=== PATIENT | female | born 1940 | race Hispanic/Latino ===

== ENCOUNTER 2017-04-27 03:39 | Observation (INO) | payer MEDICARE, MEDICAID ==
[2017-04-27 03:52] VITALS: BMI 24.3
--- NOTE | 2017-04-27 04:03 | ED PDOC ---
Arrival/HPI - General Time Seen by Provider: 04/27/17 03:43 Historian: Patient - History of Present Illness Narrative History of Present Illness (Text): 04/27/17 04:02 Lexi Hill is a 76 year old female, whose past medical history includes hypertension, chronic atrial fibrillation on Eliquis, NIDDM, chronic vertigo, hyperlipidemia, gastritis, and dementia, who presents to the Emergency department complaining of dysuria and tacho hematuria tonight. Patient denies any fever, chills, chest pain, shortness of breath, nausea, vomiting, neck pain , headache, dizziness, or any other complaints. Time/Duration: Other (tonight) Symptom Onset: Gradual Symptom Course: Unchanged Activities at Onset: Light Context: Home Past Medical History - Provider Review Nursing Documentation Reviewed: Yes - Infectious Disease Hx of Infectious Diseases: None - Tetanus Immunization Tetanus Immunization: Unknown - Cardiac Hx Cardiac Disorders: Yes Hx Atrial Fibrillation: Yes Hx Cardiac Arrhythmia: Yes Hx Hypertension: Yes - Pulmonary Hx Respiratory Disorders: No - Neurological Hx Neurological Disorder: No - HEENT Hx HEENT Disorder: No - Renal Hx Renal Disorder: No - Endocrine/Metabolic Hx Endocrine Disorders: Yes Hx Diabetes Mellitus Type 2: Yes (niddm) - Hematological/Oncological Hx Blood Disorders: Yes Hx Cancer: Yes (right breast ca w/lumpectomy rad tx in 2013) - Integumentary Hx Dermatological Disorder: No - Musculoskeletal/Rheumatological Hx Musculoskeletal Disorders: No - Gastrointestinal Hx Gastrointestinal Disorders: Yes - Genitourinary/Gynecological Hx Genitourinary Disorders: No - Psychiatric Hx Psychophysiologic Disorder: Yes Hx Anxiety: Yes Hx Depression: Yes Hx Substance Use: No - Surgical History Hx Appendectomy: Yes Hx Hysterectomy: Yes - Anesthesia Hx Anesthesia: Yes Hx Anesthesia Reactions: No Hx Malignant Hyperthermia: No - Suicidal Assessment Feels Threatened In Home Enviroment: No Family/Social History - Physician Review Nursing Documentation Reviewed: Yes Family/Social History: Unknown Family HX Smoking Status: Never Smoked Hx Alcohol Use: No Hx Substance Use: No Hx Substance Use Treatment: No Allergies/Home Meds Allergies/Adverse Reactions: Allergies No Known Allergies Allergy (Verified 04/27/17 03:52) Home Medications: Home Meds Medication Instructions Recorded Confirmed Lorazepam [Ativan] 0.5 mg PO Q6H PRN 11/11/11 04/27/17 Metformin Hydrochloride [Metformin] 500 mg PO BID 11/11/11 04/27/17 Sertraline [Zoloft] 50 mg PO DAILY 11/11/11 04/27/17 Simvastatin [Zocor] 40 mg PO DAILY 11/11/11 04/27/17 Warfarin [Coumadin] 5 mg PO DAILY 12/16/12 04/27/17 Amiodarone Hydrochloride 1 tab PO DAILY 06/19/13 04/27/17 [Amiodarone HCl] Calcium Carbonate [Calcium] 1 tab PO DAILY 06/19/13 04/27/17 Hydrochlorothiazide/Losartan 1 tab PO DAILY 06/19/13 04/27/17 [Losartan Potassium and Hydrochlorothiazide 12] Wbysf-5-Holo Ethyl Esters [Lovaza] 1 tab PO DAILY 06/19/13 04/27/17 Pantoprazole [Protonix] 1 tab PO DAILY 06/19/13 04/27/17 Review of Systems - Physician Review All systems were reviewed & negative as marked: Yes - Review of Systems Constitutional: Normal. absent: Fevers Eyes: Normal ENT: Normal Respiratory: Normal. absent: SOB, Cough Cardiovascular: Normal. absent: Chest Pain Gastrointestinal: Normal. absent: Abdominal Pain, Diarrhea, Nausea, Vomiting Genitourinary Female: Dysuria, Hematuria. absent: Frequency, Urine Output Changes Musculoskeletal: Normal. absent: Back Pain, Neck Pain Skin: Normal. absent: Rash Neurological: Normal. absent: Headache, Dizziness Endocrine: Normal Hemo/Lymphatic: Normal Psychiatric: Normal Physical Exam Vital Signs Reviewed: Yes Vital Signs Temp Pulse Resp BP Pulse Ox 04/27/17 05:39 68 18 136/57 L 96 04/27/17 03:39 99.2 F 74 16 154/95 H 100 Temperature: Afebrile Blood Pressure: Normal Pulse: Regular Respiratory Rate: Normal Appearance: Positive for: Well-Appearing, Non-Toxic, Comfortable Pain Distress: None Mental Status: Positive for: Alert and Oriented X 3 - Systems Exam Head: Present: Atraumatic, Normocephalic Pupils: Present: PERRL Extroacular Muscles: Present: EOMI Conjunctiva: Present: Normal Mouth: Present: Moist Mucous Membranes Neck: Present: Normal Range of Motion Respiratory/Chest: Present: Clear to Auscultation, Good Air Exchange. No: Respiratory Distress, Accessory Muscle Use Cardiovascular: Present: Regular Rate and Rhythm, Normal S1, S2. No: Murmurs Abdomen: Present: Normal Bowel Sounds. No: Tenderness, Distention, Peritoneal Signs Genitourinary/Pelvic Exam: Present: Normal External Genitalia. No: Vaginal Discharge, Vaginal Bleeding Back: Present: Normal Inspection Upper Extremity: Present: Normal Inspection. No: Cyanosis, Edema Lower Extremity: Present: Normal Inspection. No: Edema Neurological: Present: GCS=15, CN II-XII Intact, Speech Normal Skin: Present: Warm, Dry, Normal Color. No: Rashes Psychiatric: Present: Alert, Oriented x 3, Normal Insight, Normal Concentration Medical Decision Making ED Course and Treatment: 04/27/17 04:02 Impression: 76 year old female complaining of dysuria and tacho hematuria tonight. Plan: -- Labs -- Urinalysis -- IV fluids -- Morphine -- Reassess and disposition Prior Visits: Notes and results from previous visits were reviewed. On 08/03/2015, pt was seen in the Emergency department for high blood pressure. Pt was d/c home. Progress Notes: 04/27/17 05:[address] Matos, who is aware and agrees with plan. Accepts pt in to her service. Pt will go to [facility] observation for UTI. - Lab Interpretations Lab Results: 04/27/17 04:10 04/27/17 04:10 Lab Results 04/27/17 04:10: Urine Color Dark red, Urine Appearance Bloody, Urine pH 6.5, Ur Specific [place] 1.020, Urine Protein >=300 H, Urine Glucose (UA) Negative, Urine Ketones 15 H, Urine Blood Large H, Urine Nitrate Positive H, Urine Bilirubin Large H, Urine Urobilinogen 2.0 H, Ur Leukocyte Esterase Large H, Urine RBC Tntc, Urine WBC Tntc, Ur Epithelial Cells 0 - 2, Urine Bacteria Small 04/27/17 04:10: WBC 11.3 H D, RBC 5.16, Hgb 8.7 L, Hct 29.2 L, MCV 56.6 L, MCH 16.9 L, MCHC 29.8 L, RDW 23.1 H, Plt Count 263 04/27/17 04:10: Sodium 138, Potassium 4.0, Chloride 103, Carbon Dioxide 25, Anion Gap 15, BUN 15, Creatinine 0.7, Est GFR ( Amer) > 60, Est GFR (Non- Af Amer) > 60, Random Glucose 153 H, Calcium 9.1, Total Bilirubin 0.5, AST 67 H , ALT 84 H, Alkaline Phosphatase 64, Total Protein 8.1, Albumin 4.4, Globulin 3.7, Albumin/Globulin Ratio 1.2 04/27/17 04:10: PT 16.6 H, INR 1.51 H, APTT 31.1 I have reviewed the lab results: Yes - Medication Orders Current Medication Orders: Atorvastatin Calcium (Lipitor) 20 mg PO DIN [facility] Last Admin: 04/27/17 17:53 Dose: 20 mg Hydrochlorothiazide (Microzide) 12.5 mg PO DAILY [facility] Last Admin: 04/27/17 10:26 Dose: 12.5 mg Ceftriaxone Sodium (Rocephin 1 Gram Ivpb (D5w)) 1 gm in 100 mls @ 100 mls/hr IVPB DAILY [facility] PRN Reason: Protocol Insulin Human Lispro (Humalog Med) 0 units SC ACHS [facility] PRN Reason: Protocol Last Admin: 04/27/17 22:04 Dose: MAR Blood Glucose Document 04/27/17 22:04 MV (Rec: 04/27/17 22:04 MV [email or web address]) Blood Glucose Finger Stick Blood Glucose (70-120) 128 Lorazepam (Ativan) 0.5 mg PO Q6H PRN PRN Reason: Anxiety Losartan Potassium (Cozaar) 50 mg PO DAILY [facility] Last Admin: 04/27/17 10:27 Dose: 50 mg MAR Pulse and Blood Pressure Document 04/27/17 10:27 SOUV (Rec: 04/27/17 10:27 SOU [id number]) Pulse Pulse Rate (60-90) 66 Blood Pressure Blood Pressure (100/60-150/90) 145/60 Meclizine HCl (Antivert) 25 mg PO TID [facility] Last Admin: 04/27/17 17:53 Dose: 25 mg Metformin HCl (Glucophage) 500 mg PO BID [facility] Last Admin: 04/27/17 17:53 Dose: 500 mg Pantoprazole Sodium (Protonix Ec Tab) 40 mg PO ACB [facility] Sertraline HCl (Zoloft) 50 mg PO DAILY [facility] Last Admin: 04/27/17 10:25 Dose: 50 mg Discontinued Medications Sodium Chloride (Sodium Chloride 0.9%) 1,000 mls @ 999 mls/hr IV .Q1H1M STA Stop: 04/27/17 05:16 Last Admin: 04/27/17 04:26 Dose: 999 mls/hr eMAR Start Stop Document 04/27/17 04:26 JOL (Rec: 04/27/17 04:26 JOL [id number]) Intravenous Solution Start Date 04/27/17 Start Time 04:26 End Date 04/27/17 End time 05:27 Total Infusion Time 61 Ceftriaxone Sodium (Rocephin 1 Gram Ivpb (D5w)) 1 gm in 100 mls @ 200 mls/hr IVPB ONCE STA PRN Reason: Protocol Stop: 04/27/17 06:24 Last Admin: 04/27/17 06:26 Dose: 200 mls/hr eMAR Start Stop Document 04/27/17 06:26 JOL (Rec: 04/27/17 06:26 JOL [id number]) Intravenous Solution Start Date 04/27/17 Start Time 06:26 End Date 04/27/17 End time 06:56 Total Infusion Time 30 Sodium Chloride (Sodium Chloride 0.9%) 1,000 mls @ 100 mls/hr IV .Q10H STA Stop: 04/27/17 16:05 Last Admin: 04/27/17 06:42 Dose: 100 mls/hr eMAR Start Stop Document 04/27/17 06:42 JOL (Rec: 04/27/17 06:42 JOL [id number]) Intravenous Solution Start Date 04/27/17 Start Time 06:42 Morphine Sulfate (Morphine) 2 mg IVP STAT STA Stop: 04/27/17 04:12 Last Admin: 04/27/17 04:26 Dose: 2 mg MAR Pain Assessment Document 04/27/17 04:26 JOL (Rec: 04/27/17 04:26 JOL [id number]) Pain Reassessment Is this a pain reassessment? No Sleep Is patient sleeping during reassessment? No Presence of Pain Presence of Pain Yes Pain Scale Used Pain Scale Used Numeric Location Upper or Lower Lower Pain Location Body Site Abdomen Description Intensity of Pain at present 7 Pain Behavior Moaning Grasping Site Rubbing Site Restlessness Facial Grimacing Aggravating Factors ADL's Changing Position IVP Administration Document 04/27/17 04:26 JOL (Rec: 04/27/17 04:26 MIGUEL [id number]) Charges for Administration # of IVP Administrations 1 Non-Formulary Medication (Amiodarone Hydrochloride [Amiodarone Hcl]) 1 tab PO DAILY [facility] Non-Formulary Medication (Hydrochlorothiazide/Losartan [Losartan 50mg/Hctz 12.5mg]) 1 tab PO DAILY [facility] Non-Formulary Medication (Lorazepam [Ativan]) 0.5 mg PO Q6H PRN PRN Reason: Anxiety Non-Formulary Medication (Metformin Hydrochloride [Metformin]) 500 mg PO BID [facility] Non-Formulary Medication (Simvastatin [Zocor]) 40 mg PO DAILY [facility] Pantoprazole Sodium (Protonix Ec Tab) 40 mg PO ONCE ONE Stop: 04/27/17 09:01 Last Admin: 04/27/17 10:28 Dose: 40 mg - Scribe Statement The provider has reviewed the documentation as recorded by the Marioiblobito Carney All medical record entries made by the Marioiblobito were at my direction and personally dictated by me. I have reviewed the chart and agree that the record accurately reflects my personal performance of the history, physical exam, medical decision making, and the department course for this patient. I have also personally directed, reviewed, and agree with the discharge instructions and disposition. Disposition/Present on Arrival - Present on Arrival Any Indicators Present on Arrival: No History of DVT/PE: No History of Uncontrolled Diabetes: No Urinary Catheter: No History Surgical Site Infection Followin - Disposition Have Diagnosis and Disposition been Completed?: Yes Diagnosis: Tacho hematuria, UTI (urinary tract infection) Disposition: HOSPITALIZED Disposition Time: 05:55 Condition: STABLE
[2017-04-27] MEDS ORDERED: Morphine 2 mg/ml ISec IVP STA (04:11)
[2017-04-27] MEDS ORDERED: Sodium Chloride 0.9% 1,000 ML IV STA ×2 (04:16→06:06)
[2017-04-27 04:37] LABS: PH,URINE 6.5 (4.7-8.0); URINE BILIRUBIN LARGE (NEGATIVE); URINE BLOOD LARGE (NEGATIVE); URINE GLUCOSE (UA) NEGATIVE (NEGATIVE); URINE KETONE 15 mg/dL (NEGATIVE); URINE LEUKOCYTE ESTERASE LARGE Leu/uL (NEGATIVE); URINE PROTEIN >=300 mg/dL (<30 mg/dL)
[2017-04-27 04:41] LABS: ALB/GLOB RATIO 1.2 (1.1-1.8); ALKALINE PHOSPHATASE 64 U/L (38-126); ALT/SGPT 84 U/L (7-56); AST/SGOT 67 U/L (14-36); BILIRUBIN,TOTAL 0.5 mg/dL (0.2-1.3); BLOOD UREA NITROGEN 15 mg/dL (7-21); CALCIUM 9.1 mg/dL (8.4-10.5); CARBON DIOXIDE 25 mmol/L (21-33); CHLORIDE 103 mmol/L (98-107); GFR AFRICAN-AMERICAN > 60; GLUCOSE,RANDOM 153 mg/dL (70-110); SODIUM 138 mmol/L (132-148); TOTAL PROTEIN 8.1 g/dL (5.8-8.3)
[2017-04-27 04:44] LABS: HEMATOCRIT 29.2 % (36.0-48.0); MEAN CELL VOLUME 56.6 fl (80.0-105.0); MEAN CORPUSCULAR HEMOGLOBIN 16.9 pg (25.0-35.0); MEAN CORPUSCULAR HGB CONC 29.8 g/dl (31.0-37.0); PLATELET COUNT 263 10^3/uL (120.0-450.0); RED CELL DISTRIBUTION WIDTH 23.1 % (11.5-14.5); WHITE BLOOD COUNT 11.3 10^3/ul (4.5-11.0)
[2017-04-27 04:48] LABS: INR 1.51 (0.93-1.08); PARTIAL THROMBOPLASTIN TIME 31.1 Seconds (25.1-36.5); URINE APPEARANCE BLOODY (CLEAR); URINE COLOR DARK RED (YELLOW)
[2017-04-27 05:00] LABS: URINE BACTERIA SMALL (NEG); URINE EPITHELIAL CELLS 0 - 2 /hpf (0-5); URINE RBC TNTC /hpf (0-2); URINE WBC TNTC /hpf (0-6)
[2017-04-27] MEDS ORDERED: cefTRIAXone 1 gm 1 GM/100 ML BAG IVPB STA (05:55)
[2017-04-27] MEDS ORDERED: LORAZEPAM 0.5 MG PO PRN (08:38)
[2017-04-27] MEDS ORDERED: Pantoprazole 40 mg EC Tab PO ONE (09:00)
[2017-04-27] MEDS ORDERED: Non Formulary Medication (Simvastatin [Zocor] 40 MG) PO SCH (10:00)
[2017-04-27] MEDS ORDERED: AMIODARONE HYDROCHLORIDE PO SCH (10:00)
[2017-04-27] MEDS ORDERED: METFORMIN HYDROCHLORIDE 500 MG PO SCH (10:00)
[2017-04-27] MEDS ORDERED: Pantoprazole 40 mg EC Tab PO SCH (10:00)
[2017-04-27] MEDS ORDERED: [UNRECOGNIZED DRUG - OTHER] PO SCH (10:00)
[2017-04-27] MEDS ORDERED: LOSARTAN PO SCH (10:00)
[2017-04-27] MEDS ORDERED: HYDROCHLOROTHIAZIDE PO SCH (10:00)
[2017-04-27] MEDS: Insulin Lispro (humaLOG) MEDIUM Coverage SC SCH ×4 (11:16→22:04)
--- NOTE | 2017-04-27 17:14 | HP ---
HISTORY OF PRESENT ILLNESS: The patient is a 76-year-old. She states yesterday she had some abdominal discomfort and then she started to have hematuria. Denies any back pain, no history of fever or chills. No nausea or vomiting. No trauma. PAST MEDICAL HISTORY: 1. She has significant past medical history of chronic AFib. 2. Hypertension. 3. Byd-hfdwxmi-xuvzpoyze diabetes. 4. Chronic vertigo. 5. History of depression. 6. Hyperlipidemia. PAST SURGICAL HISTORY: Significant for cardiac cath in 2011 that was negative. SOCIAL HISTORY: She is single, lives by herself. No history of smoking, drinking or alcohol use. ALLERGIES: SHE IS NOT ALLERGIC TO ANY MEDICATIONS: MEDICATIONS AT HOME: She is on Coumadin 5 mg daily, Zocor 40 mg daily, sertraline 50 mg daily, Protonix 40 mg daily, [place]ard-3 fish oil, metformin 500 twice a day, meclizine 25 t.i.d. p.r.n., and Ativan 0.5 q.6 hours. She is on amiodarone. REVIEW OF SYSTEMS: Significant for hematuria and generalized weakness. PHYSICAL EXAMINATION: GENERAL: She is awake, alert, oriented, and communicative. VITAL SIGNS: She is afebrile, pulse is 66, respirations are 18, and blood pressure is 145/60. LUNGS: Bilateral fair airflow. No rhonchi or crackle. HEART: S1 and S2 audible. No murmur. ABDOMEN: Soft. Slight suprapubic discomfort. NEUROLOGIC: She is awake, alert, oriented, and communicative. LABORATORY DATA: WBC is 11.3, hemoglobin is 8.7, hematocrit is 29.0, and platelets are 263. PT 16.6 and INR 1.51. Chemistry: Sodium 138, potassium 4.0, chloride 103, CO2 25, BUN 15, creatinine 0.7, blood sugar of 138, AST 67, and ALT 84. ASSESSMENT: 1. Hematuria, nephrolithiasis versus urinary tract infection versus secondary to anticoagulant. 2. Chronic atrial fibrillation. 3. Hypertension. 4. Hyperlipidemia. 5. History of depression. PLAN: Blood cultures and urine cultures are sent. I will order for renal ultrasound. We will follow up. We will continue her on Rocephin. Followup urine cultures. I will monitor her blood sugar. Followup CBC and CMP in a.m. Dariela Matos MD
--- NOTE | 2017-04-27 19:28 | US ---
PROCEDURE: Ultrasound of the Kidneys HISTORY: hematuria COMPARISON: Comparison made with abdominal ultrasound dated 07/15/2015. TECHNIQUE: Sonogram of the kidneys. FINDINGS: RIGHT KIDNEY: Right kidney measures approximately 10.6 x 4.4 x 5.1 cm. Normal in size, contour and echogenicity. No stone, solid mass lesion or hydronephrosis visualized. LEFT KIDNEY: Left kidney measures approximately 10.1 x 4.0 x 5.5 cm. Normal in size, contour and echogenicity. No stone, solid mass lesion or hydronephrosis visualized. OTHER FINDINGS: None. IMPRESSION: Unremarkable renal sonogram.
[2017-04-28 08:07] LABS: BASO # 0.02 K/mm3 (0.0-2.0); BASO % 0.3 % (0.0-3.0); EOS # 0.2 (0.0-0.7); EOS % 3.2 % (1.5-5.0); GRAN # 3.93 (1.4-6.5); GRAN % 59.2 % (50.0-68.0); LYMPH # 1.9 (1.2-3.4); LYMPH % 27.9 % (22.0-35.0); MEAN CELL VOLUME 56.8 fl (80.0-105.0); MEAN CORPUSCULAR HEMOGLOBIN 16.6 pg (25.0-35.0); MEAN CORPUSCULAR HGB CONC 29.3 g/dl (31.0-37.0); MONO # 0.6 (0.1-0.6); MONO % 9.4 % (1.0-6.0); PLATELET COUNT 311 10^3/uL (120.0-450.0); WHITE BLOOD COUNT 6.6 10^3/ul (4.5-11.0)
[2017-04-28] MEDS: Insulin Lispro (humaLOG) MEDIUM Coverage SC SCH ×4 (08:15→22:26)
[2017-04-28] MEDS: Pantoprazole 40 mg EC Tab PO SCH (08:15)
[2017-04-28 08:16] LABS: ALB/GLOB RATIO 1.2 (1.1-1.8); ALKALINE PHOSPHATASE 53 U/L (38-126); ALT/SGPT 75 U/L (7-56); AST/SGOT 53 U/L (14-36); BILIRUBIN,TOTAL 0.4 mg/dL (0.2-1.3); BLOOD UREA NITROGEN 10 mg/dL (7-21); CALCIUM 8.8 mg/dL (8.4-10.5); CARBON DIOXIDE 25 mmol/L (21-33); CHLORIDE 106 mmol/L (98-107); GFR AFRICAN-AMERICAN > 60; GLUCOSE,RANDOM 110 mg/dL (70-110); POTASSIUM 3.9 mmol/L (3.6-5.0); SODIUM 143 mmol/L (132-148); TOTAL PROTEIN 7.3 g/dL (5.8-8.3)
[2017-04-28] MEDS: cefTRIAXone 1 gm 1 GM/100 ML BAG IVPB SCH (09:53)
--- NOTE | 2017-04-28 14:59 | PN ---
DATE: SUBJECTIVE: The patient is a 76-year-old seen and examined. No more hematuria noted. No abdominal pain. No fever. No chills. No nausea or vomiting. Eating and tolerating. PHYSICAL EXAMINATION: VITAL SIGNS: She is afebrile, pulse 62, respirations 20, and blood pressure 142/55. LUNGS: Bilateral fair airflow. No rhonchi or crackle. HEART: S1 and S2 audible. ABDOMEN: Soft and nontender. No rebound. No guarding. NEUROLOGIC: The patient is awake, alert, oriented, communicative, and ambulatory. LABORATORY DATA: WBC is 6.6, hemoglobin is 8.2, hematocrit is 28, and platelets of 311. Chemistry; sodium 143, potassium 3.9, chloride 106, CO2 25, BUN 10, creatinine 0.7, and blood sugar of 110. AST 53 and ALT 75. Her urine is growing gram-negative bill probably E. coli. ASSESSMENT: 1. Hematuria, secondary to Escherichia coli. 2. Chronic atrial fibrillation. 3. Anxiety disorder. 4. Chronic vertigo. 5. Lbk-ellgfsa-yfcubnmgh diabetes. PLAN: Restart the patient on Eliquis and we will continue on Rocephin, and we will see if the patient's hematuria resolve and she is stable. We will discharge her in a.m. Dariela Matos MD
[2017-04-29 07:36] VITALS: PULSE 66; RESP 20; TEMP 98.5; O2SAT 99
[2017-04-29] MEDS: Insulin Lispro (humaLOG) MEDIUM Coverage SC SCH (07:54)
[2017-04-29] MEDS: Pantoprazole 40 mg EC Tab PO SCH (10:00)
[2017-04-29] MEDS: cefTRIAXone 1 gm 1 GM/100 ML BAG IVPB SCH (10:01)
[2017-04-29 10:03] VITALS: BP 140/60
--- NOTE | 2017-04-30 05:39 | DS ---
HISTORY OF PRESENT ILLNESS: The patient is a 76-year-old seen and examined, lying in bed, and seems to be comfortable. No more hematuria. No back pain. No nausea or vomiting. No diarrhea. No fever. No chills. PHYSICAL EXAMINATION: VITAL SIGNS: She is afebrile, pulse 66, respirations 20, and blood pressure 140/60. LUNGS: Bilateral fair airflow. No rhonchi or crackle. HEART: S1 and S2 audible. Regular rate control. ABDOMEN: Soft and nontender. No rebound. No guarding. NEUROLOGIC: The patient is awake, alert, and oriented. Able to communicate and ambulatory. LABORATORY DATA: Urine culture shows E. coli positive to Rocephin and . ASSESSMENT: 1. Hematuria secondary to urinary tract infection. 2. Escherichia coli urinary tract infection. 3. Chronic atrial fibrillation. 4. Rbp-oseevkl-lsysqwwpo diabetes. 5. Hypertension. 6. Hyperlipidemia. PLAN: The patient is going to be discharge today on Vantin 100 mg twice a day for a refill. Follow up with her PMD, Dr. Doss as outpatient. Dariela Matos MD
--- NOTE | 2017-04-30 08:39 | CON ---
DATE: 04/29/2017 GENITOURINARY CONSULTATION CHIEF COMPLAINT: Gross hematuria. HISTORY OF PRESENT ILLNESS: This is a 76-year-old female who was seen in her room at [facility]. The patient was admitted few days ago after having some gross hematuria. She reports prior to the hematuria, she was having some dysuria, urinary frequency, and urgency. The patient has been on blood thinners at home for atrial fibrillation. She denies any flank pain. She reports she might have had a slight fever, but is unsure. She did not have any chills. No nausea, vomiting. No history of kidney stones. A consultation was requested regarding the above. PAST MEDICAL HISTORY: Significant for atrial fibrillation, hypertension, diabetes, vertigo, depression, and hyperlipidemia. MEDICATIONS: Include Antivert, Ativan, Cozaar, Eliquis, Glucophage, insulin, Lipitor, Protonix, Rocephin, Tylenol, and Zoloft. ALLERGIES: NO KNOWN DRUG ALLERGIES. FAMILY HISTORY: Noncontributory for this event. SOCIAL HISTORY: No smoking or EtOH use. REVIEW OF SYSTEMS: The patient reports she is currently feeling well. A 12-point review of systems was obtained. Other than the gross hematuria. All other systems were currently negative, although she did have some lower abdominal pain. This has resolved. PHYSICAL EXAMINATION: GENERAL: The patient is awake, alert. She is in no acute distress. VITAL SIGNS: Temperature of 98.5, pulse 66, BP 140/60, respirations 20. NECK: Supple. There is no adenopathy. CHEST: Revealed normal inspiratory effort. CARDIAC: Irregular rhythm. There is no peripheral edema noted. ABDOMINAL EXAM: The abdomen is soft, nontender, nondistended. There is no hepatosplenomegaly. There is no costovertebral angle tenderness. EXTREMITIES: There is no cyanosis or edema noted. LABORATORY EXAM: WBC count was 11.3, it is came down to 6.6; creatinine 0.7 with a GFR greater than 60. Urinalysis showed large blood, positive nitrites, large leukocyte esterase, too numerous to count RBC and WBC is positive for protein. On radiologic exam, the patient had a ultrasound of the kidneys on 04/27/2017 which showed no masses or hydronephrosis. Unremarkable renal ultrasound. Microbiology urine culture was positive for E. coli. IMPRESSION AND PLAN: This is a 76-year-old female with what appears to be hemorrhagic cystitis on anticoagulation. The patient has improved with antibiotics. She is planning to be discharged and I would continue with full course of outpatient oral antibiotics. Renal ultrasound showed no mass. The patient should follow up in my office or with urologist in approximately 6 weeks to recheck her urine. If hematuria persists, I would recommend a cystoscopy, although it does appear that she had hemorrhagic cystitis, this would be necessary to rule out any intravesical pathology, which could cause the gross hematuria. Thank you for allowing me to participate the care of this patient. We will follow her with you. Justus Hong MD
== END 2017-04-29 14:41 | disposition home or self-care (01) ==
LOC: ED 03:39 → ERH 05:56 → INTOOBSV 05:56 → ERH 06:46 → 3RNO 07:20 → 5RSO 23:25
PROVIDERS: ADMIT Internal Medicine; ATTEND Internal Medicine
DX: N39.0 Urinary tract infection, site not specified (principal); N30.91 Cystitis, unspecified with hematuria; B96.20 Unspecified Escherichia coli [E. coli] as the cause of diseases classified elsewhere; I48.2 Chronic atrial fibrillation; E11.9 Type 2 diabetes mellitus without complications; I10 Essential (primary) hypertension; E78.5 Hyperlipidemia, unspecified; F32.9 Major depressive disorder, single episode, unspecified; R42 Dizziness and giddiness; F41.9 Anxiety disorder, unspecified; Z85.3 Personal history of malignant neoplasm of breast; Z79.01 Long term (current) use of anticoagulants; Z79.84 Long term (current) use of oral hypoglycemic drugs
CPT/HCPCS: 36415; 76770; 80053; 81001; 82948; 85025; 85027; 85610; 85730; 87086; 87181; 96360; 96365; 96374; 99285; G0378; J0696; J2270; J7040